=== PATIENT | male | born 1990 | race Caucasian/White ===

== ENCOUNTER 2016-12-04 19:07 | Emergency (ER) | payer OTHER ==
[2016-12-04 19:22] VITALS: BP 159/80; PULSE 108; RESP 18; TEMP 98.6
--- NOTE | 2016-12-04 20:16 | ED ---
General Adult HPI - General Chief complaint: Dental/Oral Stated complaint: abscess tooth Time Seen by Provider: 12/04/16 19:45 Source: patient, RN notes reviewed Mode of arrival: ambulatory Limitations: no limitations - History of Present Illness Initial comments: This is a 26yo male who presents with dental pain 2 days. Patient states he's had trouble with this same tooth multiple times. Patient states he is scheduled to have surgery on this tooth 2 years ago but never did. Patient states he has taken 2 doses of penicillin that he had left over from a time before. Patient states he is not in a lot of pain but is noticing swelling to the left side of his face. Patient states the pain is worse when he smiles or eats. Patient denies any fever/chills nausea/vomiting/diarrhea. Patient does have a dentist.Patient denies any recent shortness breath, chest pain, abdominal pain, back pain, numbness, tingling, hematuria, headache, or visual changes, or any other complaints. - Related Data Previous Rx's Medication Instructions Recorded Amoxicillin 500 mg PO Q12HR 7 Days 12/04/16 Allergies Allergy/AdvReac Type Severity Reaction Status Date / Time No Known Allergies Allergy Verified 12/04/16 19:22 Review of Systems ROS Statement: Those systems with pertinent positive or pertinent negative responses have been documented in the HPI. ROS Other: All systems not noted in ROS Statement are negative. Past Medical History Past Medical History: No Reported History Additional Past Medical History / Comment(s): MS History of Any Multi-Drug Resistant Organisms: None Reported Past Surgical History: No Surgical Hx Reported Past Psychological History: No Psychological Hx Reported Smoking Status: Current every day smoker Past Alcohol Use History: Occasional Past Drug Use History: Marijuana General Exam - General Exam Comments Initial Comments: General: The patient is awake and alert, in no distress, and does not appear acutely ill. Eye: Pupils are equal, round and reactive to light, extra-ocular movements are intact. No nystagmus. There is normal conjunctiva bilaterally. No signs of icterus. Ears: TMs pink and pearly with intact cone of light bilaterally. Normal external ear canals Mouth and throat: There is chronic decay to tooth #18 with no surrounding erythema, purulent drainage or sign of abscess. There is some mild external facial swelling to the left side lower jaw. There are moist mucous membranes and no oral lesions. Neck: The neck is supple, there is no tenderness or JVD. Cardiovascular: There is a regular rate and rhythm. No murmur, rub or gallop is appreciated. Respiratory: Lungs are clear to auscultation, respirations are non-labored, breath sounds are equal. No wheezes, stridor, rales, or rhonchi. Musculoskeletal: Normal ROM, no tenderness. Strength 5/5. Sensation intact. Radial Pulses equal bilaterally 2+. Neurological: A&O x 3. CN II-XII intact, There are no obvious motor or sensory deficits. Coordination appears grossly intact. Speech is normal. Skin: Skin is warm and dry and no rashes or lesions are noted. Psychiatric: Cooperative, appropriate mood & affect, normal judgment. Limitations: no limitations Course Vital Signs 12/04/16 19:19 Temperature 98.6 F Pulse Rate 108 H Respiratory 18 Rate Blood Pressure 159/80 O2 Sat by Pulse 97 Oximetry Medical Decision Making - Medical Decision Making This is a 26-year-old male presents with dental pain 2 days. On physical exam patient is afebrile in the EC. There is chronic decay to tooth #18 with no surrounding erythema, purulent drainage or sign of abscess. There is some mild external facial swelling to the left side lower jaw. I discussed the patient will be on a course of antibiotics. Patient was offered pain medication but states that [id number] Tylenol or Motrin will be fine for him as he is not in a lot of pain. I discussed the importance of following up with a dentist. Patient was given a dental referral today. Discussed return parameters. Discussed that patient should follow up with PCP in one to 2 days or return to the EC for any worsening symptoms or for any further concerns. Patient was receptive to this plan and patient will be discharged home. Disposition Clinical Impression: Pain, dental Disposition: HOME SELF-CARE Condition: Good Instructions: Toothache (ED), Dental Caries (ED) Additional Instructions: Please use antibiotics as prescribed. May use [id number] Tylenol or Motrin for pain. Use warm compresses to the area for pain. Please follow-up with dentist as soon as possible. Please follow up with PCP tomorrow or return to the EC for any worsening symptoms or for any further concerns.[facility] dental plan: [id number] [facility] [place] [address], . [employer]: Have to pay $50 for x-rays and the rest is covered. . Please follow-up with family doctor in the next 2 days of symptoms have not improved. Please return to emergency room if the symptoms increase or worsen or for any other concerns. Prescriptions: Amoxicillin 500 mg PO Q12HR 7 Days Time of Disposition: 20:15
== END 2016-12-04 20:20 | disposition home or self-care (01) ==
LOC: EC 19:07
DX: K08.89 Other specified disorders of teeth and supporting structures (principal); F17.200 Nicotine dependence, unspecified, uncomplicated
CPT/HCPCS: 99282

== ENCOUNTER 2017-05-12 00:23 | Emergency (ER) | payer OTHER ==
[2017-05-12 00:37] VITALS: BP 135/76; PULSE 90; RESP 18; TEMP 98.3
[2017-05-12] MEDS ORDERED: DIPH,PERTUS(ACELL)TETVAC-LF 0.5 ML VIAL IM ONE (00:50)
--- NOTE | 2017-05-12 00:53 | ED ---
Wound/Laceration HPI - General Chief Complaint: Wound/Laceration Stated Complaint: toe injury Time Seen by Provider: 05/12/17 00:41 Source: patient, RN notes reviewed Mode of arrival: ambulatory Limitations: no limitations - History of Present Illness Initial Comments: 26-year-old male presents emergency Department with chief complaint of laceration to his left foot third digit. Patient states that he stepped on a glass table to kill a spider and states that he fell to the glass. Patient states it's very thick glass and cut his third digit. Patient also has small laceration to the second. He is unsure when his last tetanus was. He states he did wrap it and there is no active bleeding at this time. - Related Data Home Medications Medication Instructions Recorded Confirmed Glatiramer Acetate [Copaxone] 20 mg SQ DIRECTED 05/12/17 05/12/17 Ibuprofen [Motrin] 600 mg PO Q8HR PRN 05/12/17 05/12/17 Previous Rx's Medication Instructions Recorded Amoxicillin 500 mg PO Q12HR 7 Days 12/04/16 Allergies Allergy/AdvReac Type Severity Reaction Status Date / Time No Known Allergies Allergy Verified 05/12/17 00:37 Review of Systems ROS Statement: Those systems with pertinent positive or pertinent negative responses have been documented in the HPI. ROS Other: All systems not noted in ROS Statement are negative. Past Medical History Past Medical History: No Reported History Additional Past Medical History / Comment(s): MS History of Any Multi-Drug Resistant Organisms: None Reported, MRSA Date of last positivie culture/infection: 2006 MDRO Source:: buttock Past Surgical History: No Surgical Hx Reported Past Psychological History: No Psychological Hx Reported Smoking Status: Current every day smoker Past Alcohol Use History: Occasional, Rare Past Drug Use History: Marijuana, Prescription Drug Abuse General Exam Limitations: no limitations General appearance: alert, in no apparent distress Neck exam: Present: normal inspection. Absent: tenderness, meningismus, lymphadenopathy Respiratory exam: Present: normal lung sounds bilaterally. Absent: respiratory distress, wheezes, rales, rhonchi, stridor Cardiovascular Exam: Present: regular rate, normal rhythm, normal heart sounds. Absent: systolic murmur, diastolic murmur, rubs, gallop, clicks Extremities exam: Present: other (Left foot third digit there is a 2 cm laceration along with an avulsion of the skin on the second digit Refill less than 2 seconds) Skin exam: Present: warm, dry Course Vital Signs 05/12/17 00:34 Temperature 98.3 F Pulse Rate 90 Respiratory 18 Rate Blood Pressure 135/76 O2 Sat by Pulse 97 Oximetry Procedures - Laceration Laceration #1 Consent Obtained: verbal consent Indication: laceration Site: lower extremity (Left foot third digit) Size (cm): 2 Description: linear Depth: simple, single layer Anesthetic Used: lidocaine 1%, without epi Anesthesia Technique: local infiltration Amount (mls): 3 Pre-repair: wound explored, irrigated extensively, deep structures intact Type of Sutures: nylon Size of Sutures: 5-0 Number of Sutures: 6 Technique: simple, interrupted Patient Tolerated Procedure: well, no complications Medical Decision Making - Medical Decision Making 26-year-old male present emergency from for foot laceration. This was closed using sutures. There is no foreign body. We did discuss wound care and return parameters. Disposition Clinical Impression: Laceration of toe of left foot Disposition: HOME SELF-CARE Condition: Stable Instructions: Care For Your Stitches (ED), Laceration (ED) Additional Instructions: Please return to the Emergency Department if symptoms worsen or any other concerns. Have sutures removed in 10 days. Referrals: Luis Fernando Cheatham MD [Primary Care Provider] - 1-2 days Time of Disposition: 01:28
--- NOTE | 2017-05-12 01:38 | XR ---
EXAM: XR Left Toe(s), 2 or More Views CLINICAL HISTORY: Reason: Pain TECHNIQUE: Frontal, lateral and oblique views of toe(s) of the left foot. COMPARISON: No relevant prior studies available. FINDINGS: Bones/joints: Unremarkable. No acute fracture. No dislocation. Soft tissues: No significant soft tissue swelling.. No radiopaque foreign body. IMPRESSION: Normal x-rays of the left toes.
== END 2017-05-12 01:37 | disposition home or self-care (01) ==
LOC: EC 00:23
DX: S91.115A Laceration without foreign body of left lesser toe(s) without damage to nail, initial encounter (principal); G35 Multiple sclerosis; F17.200 Nicotine dependence, unspecified, uncomplicated; Z23 Encounter for immunization; Z86.14 Personal history of Methicillin resistant Staphylococcus aureus infection; Z79.899 Other long term (current) drug therapy; W18.39XA Other fall on same level, initial encounter; W25.XXXA Contact with sharp glass, initial encounter; Y93.89 Activity, other specified; Y92.009 Unspecified place in unspecified non-institutional (private) residence as the place of occurrence of the external cause
CPT/HCPCS: 12001; 90471; 90715; 99283

== ENCOUNTER 2017-05-25 17:17 | Emergency (ER) | payer OTHER ==
[2017-05-25 17:23] VITALS: BP 138/97; PULSE 104; RESP 18; TEMP 100
--- NOTE | 2017-05-25 17:53 | ED ---
General Adult HPI - General Chief complaint: Upper Respiratory Infection Stated complaint: Cough/congestion Time Seen by Provider: 05/25/17 17:20 Source: patient, RN notes reviewed Mode of arrival: ambulatory Limitations: no limitations - History of Present Illness Initial comments: This is a 26-year-old male comes in complaining of a cough for one week in the chills for one week. Patient states she's also coughing up green sputum. Patient states she's had no difficulty breathing or shortness of breath. Patient states he is smoking however. Patient also has had some nasal congestion but no facial tenderness whatsoever. Patient states she has some pressure in the right ear but not the left. Patient denies any ear drainage. Patient states he has a sore throat the morning but by the end of the day it feels much better when he wakes up the next morning his throat is sore again. - Related Data Home Medications Medication Instructions Recorded Confirmed Glatiramer Acetate [Copaxone] 20 mg SQ DIRECTED 05/12/17 05/12/17 Ibuprofen [Motrin] 600 mg PO Q8HR PRN 05/12/17 05/12/17 Previous Rx's Medication Instructions Recorded Amoxicillin 500 mg PO Q12HR 7 Days 12/04/16 Azithromycin [Zithromax Tri-Walyl] 500 mg PO DAILY #3 tab 05/25/17 Allergies Allergy/AdvReac Type Severity Reaction Status Date / Time No Known Allergies Allergy Verified 05/25/17 17:23 Review of Systems ROS Statement: Those systems with pertinent positive or pertinent negative responses have been documented in the HPI. ROS Other: All systems not noted in ROS Statement are negative. Past Medical History Past Medical History: No Reported History Additional Past Medical History / Comment(s): MS History of Any Multi-Drug Resistant Organisms: None Reported, MRSA Date of last positivie culture/infection: 2006 MDRO Source:: buttock Past Surgical History: No Surgical Hx Reported Past Psychological History: No Psychological Hx Reported Smoking Status: Current every day smoker Past Alcohol Use History: Rare Past Drug Use History: Marijuana, Prescription Drug Abuse General Exam - General Exam Comments Initial Comments: GENERAL: Patient is well-developed and well-nourished. Patient is nontoxic and well- hydrated and is in mild distress. ENT: Neck is soft and supple. No significant lymphadenopathy is noted. Oropharynx is clear. Moist mucous membranes. Neck has full range of motion without eliciting any pain. EYES: The sclera were anicteric and conjunctiva were pink and moist. Extraocular movements were intact and pupils were equal round and reactive to light. Eyelids were unremarkable. PULMONARY: Unlabored respirations. Good breath sounds bilaterally. No audible rales rhonchi or wheezing was noted. CARDIOVASCULAR: There is a regular rate and rhythm without any murmurs gallops or rubs. ABDOMEN: Soft and nontender with normal bowel sounds. SKIN: Skin is clear with no lesions or rashes and otherwise unremarkable. NEUROLOGIC: Patient is alert and oriented x3. Cranial nerves II through XII are grossly intact. Motor and sensory are also intact. Normal speech, volume and content. MUSCULOSKELETAL: Normal extremities with adequate strength and full range of motion. LYMPHATICS: No significant lymphadenopathy is noted PSYCHIATRIC: Normal psychiatric evaluation. Limitations: no limitations Course Vital Signs 05/25/17 17:20 Temperature 100 F H Pulse Rate 104 H Respiratory 18 Rate Blood Pressure 138/97 O2 Sat by Pulse 94 L Oximetry Disposition Clinical Impression: Acute bronchitis Disposition: HOME SELF-CARE Condition: Good Instructions: Acute Bronchitis (ED) Prescriptions: Azithromycin [Zithromax Tri-Wally] 500 mg PO DAILY #3 tab Referrals: Luis Fernando Cheatham MD [Primary Care Provider] - 1-2 days Time of Disposition: 17:52
== END 2017-05-25 18:17 | disposition home or self-care (01) ==
LOC: EC 17:17
DX: J20.9 Acute bronchitis, unspecified (principal); G35 Multiple sclerosis; F17.200 Nicotine dependence, unspecified, uncomplicated; Z79.899 Other long term (current) drug therapy
CPT/HCPCS: 99283

== ENCOUNTER → 2017-06-19 | Outpatient (CLI) | payer OTHER ==
[~2017-06-19] MED LIST: SODIUM CHLORIDE 0.9% 500 ML in EMPTY BAG 1 BAG IV PRN
[2017-06-19 14:43] VITALS: BP 126/70; PULSE 95
== END | disposition home or self-care (01) ==
LOC: PROCWHC3 14:28
PROVIDERS: ATTEND Psychiatry & Neurology Neurology
DX: G35 Multiple sclerosis (principal)
CPT/HCPCS: 96365; J2930

== ENCOUNTER 2017-10-18 18:05 | Emergency (ER) | payer OTHER ==
[2017-10-18 18:16] VITALS: RESP 20
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
[2017-10-18] MEDS ORDERED: HYDROcodone/APAP 5-325MG 1 EACH TAB PO STA (19:06)
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
[2017-10-18 19:29] VITALS: BP 123/80; PULSE 97; TEMP 98.8
== END 2017-10-18 19:29 | disposition home or self-care (01) ==
LOC: EC 18:05
DX: M94.0 Chondrocostal junction syndrome [Tietze] (principal); Z87.39 Personal history of other diseases of the musculoskeletal system and connective tissue; Z86.14 Personal history of Methicillin resistant Staphylococcus aureus infection; F17.200 Nicotine dependence, unspecified, uncomplicated; Z79.899 Other long term (current) drug therapy
CPT/HCPCS: 99283

== ENCOUNTER 2018-03-13 18:30 | Emergency (ER) | payer OTHER, MEDICARE ==
[2018-03-13 18:34] VITALS: BP 147/84; PULSE 102; RESP 18; TEMP 98.3
--- NOTE | 2018-03-13 19:12 | ED ---
ENT HPI - General Chief complaint: Dental/Oral Stated complaint: Abcess tooth Time Seen by Provider: 03/13/18 18:36 Source: patient, RN notes reviewed Mode of arrival: ambulatory Limitations: no limitations - History of Present Illness Initial comments: This is a pleasant 27-year-old male presents emergency department complaining of dental pain for the past few days. Patient denies any fever. Patient denies any chills. Patient denies any shortness breath or chest pain. Patient denies dizziness or lightheadedness. No difficulty swallowing. No skin rashes or lesions. No nausea or vomiting. No problems with bowel movements or urination. MD complaint: tooth pain Onset/Timin -: days(s) Severity: severe Severity scale (1-10): 7 Quality: aching Improves with: none Worsens with: none Associated Symptoms: toothache - Related Data Home Medications Medication Instructions Recorded Confirmed Glatiramer Acetate [Copaxone] 20 mg SQ SUTUTH 05/12/17 10/18/17 Previous Rx's Medication Instructions Recorded Hydrocodone/Acetaminophen [Olga 1 each PO Q6HR PRN #10 tab 10/18/17 5-325] Clindamycin [Cleocin] 300 mg PO Q6H #80 capsule 03/13/18 Naproxen [Naprosyn] 500 mg PO Q12HR #24 tab 03/13/18 Allergies Allergy/AdvReac Type Severity Reaction Status Date / Time No Known Allergies Allergy Verified 03/13/18 18:34 Review of Systems ROS Statement: Those systems with pertinent positive or pertinent negative responses have been documented in the HPI. ROS Other: All systems not noted in ROS Statement are negative. Past Medical History Past Medical History: No Reported History Additional Past Medical History / Comment(s): MS History of Any Multi-Drug Resistant Organisms: None Reported, MRSA Date of last positivie culture/infection: 2006 MDRO Source:: buttock Past Surgical History: No Surgical Hx Reported Past Psychological History: No Psychological Hx Reported Smoking Status: Current every day smoker Past Alcohol Use History: Rare Past Drug Use History: Marijuana General Exam Limitations: no limitations General appearance: alert, in no apparent distress Head exam: Present: atraumatic, normocephalic, normal inspection Eye exam: Present: normal appearance, PERRL, EOMI. Absent: scleral icterus, conjunctival injection, periorbital swelling ENT exam: Present: TM's normal bilaterally, other (No evidence of tonsillar adenopathy or exudate no evidence or lesions. Patient does have poor dentition throughout. Patient does have evidence of possible early dental abscess to adjacent to the right lower molars. Patient has minimal erythema adjacent to the lower molars bilaterally.) Neck exam: Present: normal inspection. Absent: tenderness, meningismus, lymphadenopathy Respiratory exam: Present: normal lung sounds bilaterally. Absent: respiratory distress, wheezes, rales, rhonchi, stridor Cardiovascular Exam: Present: regular rate, normal rhythm, normal heart sounds. Absent: systolic murmur, diastolic murmur, rubs, gallop, clicks Extremities exam: Present: normal inspection, normal capillary refill Neurological exam: Present: alert, oriented X3, CN II-XII intact Psychiatric exam: Present: normal affect, normal mood Skin exam: Present: warm, dry, intact, normal color. Absent: rash Course Vital Signs 03/13/18 18:32 Temperature 98.3 F Pulse Rate 102 H Respiratory 18 Rate Blood Pressure 147/84 O2 Sat by Pulse 99 Oximetry - Reevaluation(s) Reevaluation #1: 04/26/18 23:12 Patient remained stable throughout the course of stay in the ER Medical Decision Making - Medical Decision Making Return to the ER at once if the symptoms worsen or problems or difficulties arise. Discussed follow-up and return parameters with the patient Disposition Clinical Impression: Dental abscess Disposition: HOME SELF-CARE Condition: Good Instructions: Dental Abscess (ED) Additional Instructions: Follow-up with the [facility] at [address] [place] [address]. The phone number is [phone] (existing clients), ( new clients). The first consultation is $50 which includes x-rays. Usually costs 30% less than private dentist for subsequent visits. Return to the ER at once if the symptoms worsen or problems or difficulties arise. Warm Compresses as directed Prescriptions: Clindamycin [Cleocin] 300 mg PO Q6H #80 capsule Naproxen [Naprosyn] 500 mg PO Q12HR #24 tab Is patient prescribed a controlled substance at d/c from ED?: No Referrals: Luis Antonio Robles DDS [STAFF PHYSICIAN] - 03/16/18 Time of Disposition: 18:47
== END 2018-03-13 18:54 | disposition home or self-care (01) ==
LOC: EC 18:30
DX: K04.7 Periapical abscess without sinus (principal); G35 Multiple sclerosis; F17.200 Nicotine dependence, unspecified, uncomplicated; Z86.14 Personal history of Methicillin resistant Staphylococcus aureus infection; Z79.899 Other long term (current) drug therapy
CPT/HCPCS: 99282

== ENCOUNTER 2021-08-07 12:53 | Emergency (ER) | payer OTHER ==
[2021-08-07 13:29] VITALS: RESP 16; TEMP 98.6
--- NOTE | 2021-08-07 15:50 | ED ---
General Adult HPI - General Chief complaint: Recheck/Abnormal Lab/Rx Stated complaint: Weakness Time Seen by Provider: 08/07/21 14:55 Source: patient, RN notes reviewed Mode of arrival: wheelchair Limitations: no limitations - History of Present Illness Initial comments: this a 31-year-old male presents emergency Department chief complaint of MS issues. Patient states he sees his primary care physician for his MS. Patient occasionally needs infusions. He states he started noticing some tingling, jaundice weakness of his lower extremity or chest pain or shortness breath no other complaints. Patient states - Related Data Home Medications Medication Instructions Recorded Confirmed Ergocalciferol [Vitamin D2 (1250 1 tab PO WEEKLY 05/06/21 05/06/21 Mcg = [id number] Iu)] Allergies Allergy/AdvReac Type Severity Reaction Status Date / Time No Known Allergies Allergy Verified 08/07/21 13:29 Review of Systems ROS Statement: Those systems with pertinent positive or pertinent negative responses have been documented in the HPI. ROS Other: All systems not noted in ROS Statement are negative. Past Medical History Past Medical History: No Reported History Additional Past Medical History / Comment(s): MS History of Any Multi-Drug Resistant Organisms: None Reported, MRSA Date of last positivie culture/infection: 2006 MDRO Source:: buttock Past Surgical History: No Surgical Hx Reported Past Psychological History: No Psychological Hx Reported Smoking Status: Current every day smoker Past Alcohol Use History: Rare Past Drug Use History: Marijuana General Exam Limitations: no limitations General appearance: alert, in no apparent distress Head exam: Present: atraumatic, normocephalic, normal inspection Eye exam: Present: normal appearance, PERRL, EOMI. Absent: scleral icterus, conjunctival injection, periorbital swelling Respiratory exam: Present: normal lung sounds bilaterally. Absent: respiratory distress, wheezes, rales, rhonchi, stridor Cardiovascular Exam: Present: regular rate, normal rhythm, normal heart sounds. Absent: systolic murmur, diastolic murmur, rubs, gallop, clicks GI/Abdominal exam: Present: soft, normal bowel sounds. Absent: distended, tenderness, guarding, rebound, rigid Extremities exam: Present: other (lower extremity strength 4/5 neurovascular intact) Back exam: Present: full ROM. Absent: tenderness, paraspinal tenderness, vertebral tenderness Course Vital Signs 08/07/21 13:26 Temperature 98.6 F Pulse Rate 73 Respiratory 16 Rate Blood Pressure 117/77 O2 Sat by Pulse 96 Oximetry Medical Decision Making - Medical Decision Making 31-year-old male presented for MS exacerbation. I recommended the patient that he needs to stay for IV steroid infusion for several days. Patient refuses to be admitted as he states he had issues in the past. He understands the risk and compilations of present see been one-time dose infusion. He still states that he would prefer to have sthis infusion and go home. Disposition Clinical Impression: Exacerbation of multiple sclerosis Disposition: HOME SELF-CARE Condition: Stable Instructions (If sedation given, give patient instructions): Multiple Sclerosis (DC) Additional Instructions: please follow up with your PCP tomorrow and discuss further infusions.Please return to the Emergency Department if symptoms worsen or any other concerns. Is patient prescribed a controlled substance at d/c from ED?: No Referrals: Benjamín Mortensen MD [Primary Care Provider] - 1-2 days Time of Disposition: 15:50
[2021-08-07 16:27] VITALS: BP 112/70; PULSE 72
== END 2021-08-07 16:27 | disposition home or self-care (01) ==
LOC: EC 12:53
DX: G35 Multiple sclerosis (principal); F17.200 Nicotine dependence, unspecified, uncomplicated
CPT/HCPCS: 99284; 96365; J2930

== ENCOUNTER 2021-12-24 13:38 | Emergency (ER) | payer MEDICARE, OTHER ==
[2021-12-24 14:01] VITALS: BP 122/80; PULSE 83; RESP 16; TEMP 98
[2021-12-24] MEDS ORDERED: methylPREDNISolone SOD SUCCI 40 MG/ML 1 ML VIAL IV STA (15:18)
[2021-12-24] MEDS ORDERED: methylPREDNISolone SOD SUCCIN 1,000 MG in SODIUM CHLORIDE 0.9% 250 ML IVPB STA (15:41)
[2021-12-24 15:58] LABS: Basophils # (A) 0.1 k/uL (0-0.2); Basophils % (A) 1 %; Eosinophils # (A) 0.3 k/uL (0-0.7); Eosinophils % (A) 3 %; HCT 44.4 % (39.0-53.0); HGB 15.2 gm/dL (13.0-17.5); Lymphocytes # (A) 2.5 k/uL (1.0-4.8); Lymphocytes % (A) 24 %; MCH 29.8 pg (25.0-35.0); MCHC 34.2 g/dL (31.0-37.0); MCV 87.3 fL (80.0-100.0); Mean Platelet Volume 7.3; Monocytes # (A) 0.6 k/uL (0-1.0); Monocytes % (A) 6 %; Neutrophils # (A) 6.9 k/uL (1.3-7.7); Neutrophils % (A) 66 %; Platelet Count 253 k/uL (150-450); RBC 5.08 m/uL (4.30-5.90); RDW 13.3 % (11.5-15.5); WBC 10.5 k/uL (3.8-10.6)
--- NOTE | 2021-12-24 15:58 | ED ---
Eye Problem HPI - General Chief complaint: Eye Problems Stated complaint: eye problem Time Seen by Provider: 12/24/21 14:56 Source: patient Mode of arrival: ambulatory Limitations: no limitations - History of Present Illness Initial comments: Patient is a 31-year-old male past medical history of multiple sclerosis who presents with right eye blurry vision and pain 5 days. Patient was evaluated by manager steel and belt repairer today who suspect right eye optic neuritis secondary to multiple sclerosis. Patient reports that his vision out of the rig ht eye is very dark and blurry. He has never experienced these symptoms before. Symptoms presented suddenly and are constant. He denies flashes or floaters. Patient reports he normally has 20/20 vision in the right eye with glasses on. Patient also reports pain in the right eye that is exacerbated with extraocular movements left, right, and upward. Patient denies visual changes and pain in th e left eye. Patient was sent to the emergency department by Dr. Bonilla and Dr. Olvera for IV steroid treatment 3 days. Patient denies fever, chills, generalized weakness, diplopia, headache, shortness of breath, cough, chest pain, palpitations, abdominal pain, nausea, vomiting, diarrhea, constipation, and dysuria. - Related Data Previous Rx's Medication Instructions Recorded predniSONE 20 mg PO TID 7 Days #21 tab 12/24/21 Allergies Allergy/AdvReac Type Severity Reaction Status Date / Time No Known Allergies Allergy Verified 12/24/21 15:37 Review of Systems ROS Statement: Those systems with pertinent positive or pertinent negative responses have been documented in the HPI. ROS Other: All systems not noted in ROS Statement are negative. Past Medical History Past Medical History: Musculoskeletal Disorder Additional Past Medical History / Comment(s): Multiple sclerosis History of Any Multi-Drug Resistant Organisms: None Reported, MRSA Date of last positivie culture/infection: 2006 MDRO Source:: buttock Past Surgical History: No Surgical Hx Reported Past Psychological History: No Psychological Hx Reported Smoking Status: Current every day smoker Past Alcohol Use History: None Reported Past Drug Use History: Marijuana General Exam Limitations: no limitations General appearance: alert, in no apparent distress Head exam: Present: atraumatic, normocephalic, normal inspection Eye exam: Present: normal appearance, PERRL, EOMI (pain ) Respiratory exam: Present: normal lung sounds bilaterally. Absent: respiratory distress, wheezes, rales, rhonchi, stridor Cardiovascular Exam: Present: regular rate, normal rhythm, normal heart sounds. Absent: systolic murmur, diastolic murmur, rubs, gallop, clicks GI/Abdominal exam: Present: soft, normal bowel sounds. Absent: distended, tenderness, guarding, rebound, rigid Neurological exam: Present: alert, oriented X3, CN II-XII intact Psychiatric exam: Present: normal affect, normal mood Skin exam: Present: warm, dry, intact, normal color. Absent: rash Course Vital Signs 12/24/21 13:54 Temperature 98 F Pulse Rate 83 Respiratory 16 Rate Blood Pressure 122/80 O2 Sat by Pulse 97 Oximetry Medical Decision Making - Medical Decision Making This is a 31-year-old male who presents with right eye blurry vision and pain 5 days likely due to optic neuritis secondary to multiple sclerosis. Patient was sent to the emergency department by his manager steel and belt repairer for IV methylprednisone daily 3 days. Thorough history and examination were performed. Visual acuity of left eye is 20/25. Patient is unable to see chart at all with right eye and states he can only see the floor. Case discussed with patient. Patient is agreeable to IV access, laboratory blood draw, and first dose of IV methylprednisolone. Patient declines admission at this time as he reports he has to take care of his kids at home. Patient states he has previously received infusion treatment outpatient arranged by his primary care provider Dr. Mortensen. Case discussed with Dr. Mortensen. Dr. Mortensen is unable arrange for timely infusion and does recommend patient be admitted for IV steroid treatment. He does mention that patient was referred to neurologist in April of 2021 and has been noncompliant. Risks and benefits d iscussed with patient, including but not limited to permanent blindness. Patient verbalizes understanding and reports he will come to the emergency department at 7 AM for the next 2 consecutive days for further IV methylprednisolone treatment. Strict return parameters discussed. I did prescribe the patient oral prednisone with instructions to take it if he does not come to the emergency department tomorrow for IV steroid treatment. Patient verbalizes understanding. Dr. Whitley is my attending. - Lab Data Result diagrams: 12/24/21 15:50 12/24/21 15:50 Lab Results 12/24/21 12/24/21 Range/Units 15:50 15:50 WBC 10.5 (3.8-10.6) k/uL RBC 5.08 (4.30-5.90) m/uL Hgb 15.2 (13.0-17.5) gm/dL Hct 44.4 (39.0-53.0) % MCV 87.3 (80.0-100.0) fL MCH 29.8 (25.0-35.0) pg MCHC 34.2 (31.0-37.0) g/dL RDW 13.3 (11.5-15.5) % Plt Count 253 (150-450) k/uL MPV 7.3 Neutrophils % 66 % Lymphocytes % 24 % Monocytes % 6 % Eosinophils % 3 % Basophils % 1 % Neutrophils # 6.9 (1.3-7.7) k/uL Lymphocytes # 2.5 (1.0-4.8) k/uL Monocytes # 0.6 (0-1.0) k/uL Eosinophils # 0.3 (0-0.7) k/uL Basophils # 0.1 (0-0.2) k/uL Sodium 140 (137-145) mmol/L Potassium 4.0 (3.5-5.1) mmol/L Chloride 109 H (98-107) mmol/L Carbon Dioxide 20 L (22-30) mmol/L Anion Gap 11 mmol/L BUN 9 (9-20) mg/dL Creatinine 0.72 (0.66-1.25) mg/dL Est GFR (CKD-EPI)AfAm >90 (>60 ml/min/1.73 sqM) Est GFR (CKD-EPI)NonAf >90 (>60 ml/min/1.73 sqM) Glucose 97 (74-99) mg/dL Calcium 9.7 (8.4-10.2) mg/dL Total Bilirubin 0.4 (0.2-1.3) mg/dL AST 22 (17-59) U/L ALT 20 (4-49) U/L Alkaline Phosphatase 89 (38-126) U/L Total Protein 7.8 (6.3-8.2) g/dL Albumin 4.8 (3.5-5.0) g/dL Disposition Clinical Impression: Acute right eye pain, Multiple sclerosis, Bacterial conjunctivitis Disposition: HOME SELF-CARE Condition: Fair Instructions (If sedation given, give patient instructions): Optic Neuritis (ED) Additional Instructions: Untreated optic neuritis does increase the risk of permanent blindness. It is extremely important to report to the emergency department for the next 2 consecutive days for IV steroid treatment. Take oral prednisone medication as prescribed only if you do not come to the emergency department on 12/25/21 and 12/26/21 for IV steroid treatment. Return to the emergency department if you e xperience new, concerning, or worsening symptoms. Prescriptions: predniSONE 20 mg PO TID 7 Days #21 tab Is patient prescribed a controlled substance at d/c from ED?: No Referrals: Benjamín Mortensen MD [Primary Care Provider] - 1-2 days Time of Disposition: 17:23
[2021-12-24 16:10] LABS: ALT 20 U/L (4-49); AST 22 U/L (17-59); African American GFR (CKD) >90 (>60 ml/min/1.73 sqM); Albumin 4.8 g/dL (3.5-5.0); Alkaline Phosphatase 89 U/L (38-126); Anion Gap 11 mmol/L; Blood Urea Nitrogen 9 mg/dL (9-20); Calcium 9.7 mg/dL (8.4-10.2); Carbon Dioxide 20 mmol/L (22-30); Chloride 109 mmol/L (98-107); Glucose 97 mg/dL (74-99); Non-African American GFR(CKD) >90 (>60 ml/min/1.73 sqM); Sodium 140 mmol/L (137-145); Total Bilirubin 0.4 mg/dL (0.2-1.3); Total Protein 7.8 g/dL (6.3-8.2)
== END 2021-12-24 18:10 | disposition home or self-care (01) ==
LOC: EC 13:38
DX: G35 Multiple sclerosis (principal); H57.11 Ocular pain, right eye; H10.9 Unspecified conjunctivitis; F17.200 Nicotine dependence, unspecified, uncomplicated
CPT/HCPCS: 99283; 96365; 36415; 80053; 85025; J2930

== ENCOUNTER 2021-12-25 09:32 | Emergency (ER) | payer MEDICARE, OTHER ==
[2021-12-25 09:46] VITALS: TEMP 96.9
--- NOTE | 2021-12-25 10:16 | ED ---
General Adult HPI - General Chief complaint: Eye Problems Stated complaint: eye problem-revisit Time Seen by Provider: 12/25/21 09:47 Source: patient, RN notes reviewed, old records reviewed Mode of arrival: ambulatory Limitations: no limitations - History of Present Illness Initial comments: Patient is a 31-year-old male with past medical history remarkable for MS. Was diagnosed with optic neuritis secondary to multiple sclerosis by opthalmology. He was instructed to come to the emergency department. He was instructed to receive IV steroid infusions. He did not want to be admitted to the hospital. He was evaluated yesterday for the same complaint was given his infusions and then discharged home with instructions to return if daily basis over the next 2 days for further IV steroid treatment. He was in agreement this plan. He states today that he is improving in terms of his symptoms. States he believes his vision is improved at this time. Endorses no acute changes or worsening symptoms yesterday. His no other acute point at this time. Would like his steroid infusions. - Related Data Previous Rx's Medication Instructions Recorded predniSONE 20 mg PO TID 7 Days #21 tab 12/24/21 Allergies Allergy/AdvReac Type Severity Reaction Status Date / Time No Known Allergies Allergy Verified 12/25/21 09:46 Review of Systems ROS Statement: Those systems with pertinent positive or pertinent negative responses have been documented in the HPI. Review of Systems: CONST: Denies fever EYES: Endorses improving blurry vision right eye ENT: Denies nasal congestion C/V: Denies Chest pain RESP: Denies shortness of breath GI: Denies abdominal pain : Denies dysuria SKIN: Denies rash. MSK: Denies joint pain. NEURO: Denies headache ROS Other: All systems not noted in ROS Statement are negative. Past Medical History Past Medical History: Musculoskeletal Disorder Additional Past Medical History / Comment(s): Multiple sclerosis History of Any Multi-Drug Resistant Organisms: None Reported, MRSA Date of last positivie culture/infection: 2006 MDRO Source:: buttock Past Surgical History: No Surgical Hx Reported Past Psychological History: No Psychological Hx Reported Smoking Status: Current every day smoker Past Alcohol Use History: None Reported Past Drug Use History: Marijuana General Exam - General Exam Comments Initial Comments: General: Appears in no acute distress. HEAD: Normal with no signs of head trauma. EYES: PERRLA, EOMI, conjunctiva normal, no discharge. ENT: Hearing grossly intact, normal oropharynx. RESPIRATORY: Clear breath sounds bilaterally. No wheezes, rales, or rhonchi. C/V: Regular rate and rhythm. S1 and S2 auscultated, no edema, peripheral pulses 2+ and intact throughout ABD: Abd is soft, nontender, nondistended EXT: Normal range of motion, no obvious deformity SKIN: No rashes or lesions observed on exposed skin. NEURO: Alert and oriented 4. Limitations: no limitations Course Vital Signs 12/25/21 12/25/21 09:43 11:46 Temperature 96.9 F L Pulse Rate 107 H 98 Respiratory 18 16 Rate Blood Pressure 133/78 137/76 O2 Sat by Pulse 97 97 Oximetry Medical Decision Making - Medical Decision Making Based on the patient's presentation and physical exam, I believe that he can receive his steroid infusions and be discharged home. Patient was was in agreement with this plan. I do not believe that he requires any further laboratory studies or imaging. I did instruct him to return to the emergency department tomorrow for his final dose steroids. He has adequate follow-up with neurology as well as ophthalmology. His symptoms seem to be improving. I instructed the patient to follow up with their PCP in the next 3 days. I explained that the patient should return to the emergency department if they experience any worsening symptoms. Strict return precautions were discussed with the patient. The patient expressed understanding of these instructions. I answered all questions that the patient had. The patient was discharged home in good condition with their prescriptions and follow up information. Disposition Clinical Impression: Multiple sclerosis exacerbation Disposition: HOME SELF-CARE Condition: Good Instructions (If sedation given, give patient instructions): Multiple Sclerosis (DC) Is patient prescribed a controlled substance at d/c from ED?: No Referrals: Benjamín Mortensen MD [Primary Care Provider] - 1-2 days
[2021-12-25] MEDS ORDERED: methylPREDNISolone SOD SUCC 1,000 MG in SODIUM CHLORIDE 0.9% 250 ML IVPB ONE (10:30)
[2021-12-25 11:46] VITALS: BP 137/76; PULSE 98; RESP 16
== END 2021-12-25 12:06 | disposition home or self-care (01) ==
LOC: EC 09:32
DX: G35 Multiple sclerosis (principal); F17.200 Nicotine dependence, unspecified, uncomplicated
CPT/HCPCS: 99283; 96365; J2930

== ENCOUNTER 2021-12-26 07:41 | Emergency (ER) | payer MEDICARE, OTHER ==
[2021-12-26 07:57] VITALS: RESP 18
[2021-12-26] MEDS ORDERED: methylPREDNISolone SOD SUCC 1,000 MG in SODIUM CHLORIDE 0.9% 250 ML IVPB ONE (08:30)
--- NOTE | 2021-12-26 08:38 | ED ---
Recheck HPI - General Chief Complaint: Recheck/Abnormal Lab/Rx Stated Complaint: Steroid infusion, revisit Time Seen by Provider: 12/26/21 08:00 Source: patient, RN notes reviewed Mode of arrival: ambulatory Limitations: no limitations - History of Present Illness Initial Comments: This is a 31 year old male with a PMHx of MS who presents to the emergency department for his third infusion of methylprednisolone for optic neuritis. Optic neuritis was diagnosed by ophthalmology secondary to multiple sclerosis. Patient was advised to be admitted for IV steroids, however he refused and has instead been coming to the emergency department daily for the last 3 days to receive IV infusions. Denies any acute changes or worsening symptoms, he notes that his pain is still present, but improving. The blurry vision is improving as well, he is able to see out of the bottom half of the right eye. His vac press operator is on vacation so his follow up appointment is not scheduled until 01/03/2022. MD Complaint: other (IV steroids day 3) Symptoms Since Prior Visit: no new symptoms - Related Data Home Medications Medication Instructions Recorded Confirmed predniSONE See Taper PO DIRECTED 12/26/21 Allergies Allergy/AdvReac Type Severity Reaction Status Date / Time No Known Allergies Allergy Verified 12/26/21 08:52 Review of Systems ROS Statement: Those systems with pertinent positive or pertinent negative responses have been documented in the HPI. ROS Other: All systems not noted in ROS Statement are negative. Constitutional: Denies: fever, chills Eyes: Reports: eye pain, other (blurry vision - improving). Denies: eye discharge ENT: Denies: ear pain, throat pain Respiratory: Denies: cough, dyspnea Cardiovascular: Denies: chest pain, palpitations Gastrointestinal: Denies: abdominal pain, nausea, vomiting Genitourinary: Denies: urgency, dysuria Past Medical History Past Medical History: Musculoskeletal Disorder Additional Past Medical History / Comment(s): Multiple sclerosis History of Any Multi-Drug Resistant Organisms: None Reported, MRSA Date of last positivie culture/infection: 2006 MDRO Source:: buttock Past Surgical History: No Surgical Hx Reported Past Psychological History: No Psychological Hx Reported Smoking Status: Current every day smoker Past Alcohol Use History: None Reported Past Drug Use History: Marijuana General Exam Limitations: no limitations General appearance: alert, in distress Head exam: Present: atraumatic, normocephalic, normal inspection Eye exam: Present: PERRL, EOMI, other. Absent: normal appearance, scleral icterus, conjunctival injection Respiratory exam: Present: normal lung sounds bilaterally. Absent: respiratory distress, wheezes, rales, rhonchi, stridor Cardiovascular Exam: Present: regular rate, normal rhythm, normal heart sounds. Absent: systolic murmur, diastolic murmur, rubs, gallop, clicks Neurological exam: Present: alert, oriented X3, CN II-XII intact Psychiatric exam: Present: normal affect, normal mood Course Vital Signs 12/26/21 07:54 Temperature 97.8 F Pulse Rate 127 H Respiratory 18 Rate Blood Pressure 153/76 O2 Sat by Pulse 97 Oximetry Medical Decision Making - Medical Decision Making This is a 31 year old male who presents to the emergency department for his third methylprednisolone infusion for optic neuritis secondary to multiple sclerosis. 1g Methylprednisolone administered. Patient tolerated infusion well without complications and is safe for discharge home. Return precautions reviewed in depth, the patient is instructed to return to the emergency department if he develops symptoms including but not limited to worsening eye pain, progressive blurry vision, fevers, and nausea/vomiting. Patient verbalized understanding and will follow up with ophthalmology as schedu led. This case was discussed in detail with the attending ED physician. Presentation, findings, and treatment plan discussed in detail as well. Disposition Clinical Impression: Optic neuritis due to multiple sclerosis Disposition: HOME SELF-CARE Condition: Stable Instructions (If sedation given, give patient instructions): Optic Neuritis (ED) Additional Instructions: Return to the emergency department if you develop worsening eye pain, worsening blurry vision, fevers/chills, or nausea/vomiting. Follow up with your vac press operator as scheduled. Is patient prescribed a controlled substance at d/c from ED?: No Referrals: Benjamín Mortensen MD [Primary Care Provider] - 1-2 days
[2021-12-26 11:41] VITALS: BP 141/79; PULSE 99; TEMP 98
== END 2021-12-26 11:40 | disposition home or self-care (01) ==
LOC: EC 07:41
DX: G35 Multiple sclerosis (principal); H46.9 Unspecified optic neuritis; F17.200 Nicotine dependence, unspecified, uncomplicated
CPT/HCPCS: 99283; 96365; J2930

== ENCOUNTER 2022-06-30 08:24 | Emergency (ER) | payer MEDICARE, OTHER ==
[2022-06-30 08:32] VITALS: RESP 18
[2022-06-30] MEDS ORDERED: methylPREDNISolone SOD SUCCIN 250 MG in SODIUM CHLORIDE 0.9% 100 ML IVPB STA (08:34)
--- NOTE | 2022-06-30 08:40 | ED ---
General Adult HPI - General Chief complaint: Recheck/Abnormal Lab/Rx Stated complaint: Doctor sent to get steroid infusion Time Seen by Provider: 06/30/22 08:26 Source: patient, RN notes reviewed Mode of arrival: wheelchair Limitations: no limitations - History of Present Illness Initial comments: 32-year-old male presents emergency Department for steroid infusion for MS. Patient states he is currently sees Dr. Espinoza and sees Dr. Lawrence. Patient normally has outpatient infusions when he starts to have MS exacerbation but states that they're unable to get him in today. Patient states that he's been referred to a specialist. Patient states he has mild left leg and arm weakness. Patient denies any headache blurred vision no chest pain states it's very typical symptoms for him he states his initial MS started with his left arm. - Related Data Home Medications Medication Instructions Recorded Confirmed predniSONE See Taper PO DIRECTED 12/26/21 Allergies Allergy/AdvReac Type Severity Reaction Status Date / Time No Known Allergies Allergy Verified 12/26/21 08:52 Review of Systems ROS Statement: Those systems with pertinent positive or pertinent negative responses have been documented in the HPI. ROS Other: All systems not noted in ROS Statement are negative. Past Medical History Past Medical History: Musculoskeletal Disorder Additional Past Medical History / Comment(s): Multiple sclerosis History of Any Multi-Drug Resistant Organisms: None Reported, MRSA Date of last positivie culture/infection: 2006 MDRO Source:: buttock Past Surgical History: No Surgical Hx Reported Past Psychological History: No Psychological Hx Reported Smoking Status: Current every day smoker Past Alcohol Use History: None Reported Past Drug Use History: Marijuana General Exam Limitations: no limitations General appearance: alert, in no apparent distress Head exam: Present: atraumatic, normocephalic, normal inspection Eye exam: Present: normal appearance, PERRL, EOMI. Absent: scleral icterus, conjunctival injection, periorbital swelling ENT exam: Present: normal exam, mucous membranes moist Neck exam: Present: normal inspection, full ROM. Absent: tenderness, meningismu s, lymphadenopathy Respiratory exam: Present: normal lung sounds bilaterally. Absent: respiratory distress, wheezes, rales, rhonchi, stridor Cardiovascular Exam: Present: regular rate, normal rhythm, normal heart sounds. Absent: systolic murmur, diastolic murmur, rubs, gallop, clicks Extremities exam: Present: other (Minimal weakness in the left and, remaining extremity strength equal.) Neurological exam: Present: alert, oriented X3, CN II-XII intact, reflexes normal. Absent: motor sensory deficit Course Vital Signs 06/30/22 08:29 Temperature 98.0 F Pulse Rate 83 Respiratory 18 Rate Blood Pressure 118/81 O2 Sat by Pulse 96 Oximetry Medical Decision Making - Medical Decision Making 32-year-old presented for steroid infusion for MS exacerbation. 1 g was given. He was offered admission he states he's been set up for outpatient infusions she does not want stay in the hospital. Doesn't extend wrist. Patient return for any worsening change in symptoms. Disposition Clinical Impression: Multiple sclerosis exacerbation Disposition: HOME SELF-CARE Condition: Stable Instructions (If sedation given, give patient instructions): Multiple Sclerosis (DC) Additional Instructions: Please return to the Emergency Department if symptoms worsen or any other concerns. Is patient prescribed a controlled substance at d/c from ED?: No Referrals: Benjamín Mortensen MD [Primary Care Provider] - 1-2 days Time of Disposition: 09:42
[2022-06-30] MEDS ORDERED: methylPREDNISolone SOD SUCCIN 1,000 MG in SODIUM CHLORIDE 0.9% 250 ML IVPB STA (08:44)
[2022-06-30 10:09] VITALS: BP 112/78; PULSE 78; TEMP 98.1
== END 2022-06-30 10:08 | disposition home or self-care (01) ==
LOC: EC 08:24
DX: G35 Multiple sclerosis (principal); F17.200 Nicotine dependence, unspecified, uncomplicated; F12.90 Cannabis use, unspecified, uncomplicated
CPT/HCPCS: 99284; 96365; J2930

== ENCOUNTER 2022-07-01 08:44 | Emergency (ER) | payer MEDICARE, OTHER ==
[2022-07-01 09:10] VITALS: RESP 18; TEMP 98.7
[2022-07-01] MEDS ORDERED: methylPREDNISolone SOD SUCCIN 1,000 MG in SODIUM CHLORIDE 0.9% 250 ML IVPB STA (09:43)
--- NOTE | 2022-07-01 10:43 | ED ---
General Adult HPI - General Chief complaint: Recheck/Abnormal Lab/Rx Stated complaint: infusion Time Seen by Provider: 07/01/22 08:51 Source: patient, RN notes reviewed Mode of arrival: ambulatory Limitations: no limitations - History of Present Illness Initial comments: This a 32-year-old male presents emergency Department for steroid infusion. Patient was here yesterday for MS exacerbation sent in by PCP. Patient is here for her second dose of steroids. Patient states that his symptoms are improving so has mild left arm weakness felt there was difficulty ambulate but much better this morning. Patient denies any headache no facial asymmetry. Patient states that he believes that he has been set up for his other infusions. Patient offers no other associated complaints. - Related Data Home Medications Medication Instructions Recorded Confirmed predniSONE See Taper PO DIRECTED 12/26/21 Allergies Allergy/AdvReac Type Severity Reaction Status Date / Time No Known Allergies Allergy Verified 07/01/22 09:10 Review of Systems ROS Statement: Those systems with pertinent positive or pertinent negative responses have been documented in the HPI. ROS Other: All systems not noted in ROS Statement are negative. Past Medical History Past Medical History: Musculoskeletal Disorder Additional Past Medical History / Comment(s): Multiple sclerosis History of Any Multi-Drug Resistant Organisms: None Reported, MRSA Date of last positivie culture/infection: 2006 MDRO Source:: buttock Past Surgical History: No Surgical Hx Reported Past Psychological History: No Psychological Hx Reported Smoking Status: Current every day smoker Past Alcohol Use History: None Reported Past Drug Use History: Marijuana General Exam Limitations: no limitations General appearance: alert, in no apparent distress Head exam: Present: atraumatic, normocephalic, normal inspection Eye exam: Present: normal appearance, PERRL, EOMI. Absent: scleral icterus, conjunctival injection, periorbital swelling ENT exam: Present: normal exam, normal oropharynx, mucous membranes moist Neck exam: Present: normal inspection, full ROM. Absent: tenderness, meningismus, lymphadenopathy Respiratory exam: Present: normal lung sounds bilaterally. Absent: respiratory distress, wheezes, rales, rhonchi, stridor Cardiovascular Exam: Present: regular rate, normal rhythm, normal heart sounds. Absent: systolic murmur, diastolic murmur, rubs, gallop, clicks Extremities exam: Present: other (Mild left arm weakness) Neurological exam: Present: alert Skin exam: Present: warm, dry, intact, normal color. Absent: rash Course Vital Signs 07/01/22 09:08 Temperature 98.7 F Pulse Rate 96 Respiratory 18 Rate Blood Pressure 123/77 O2 Sat by Pulse 96 Oximetry Medical Decision Making - Medical Decision Making 32-year-old male presented for steroid infusion. Patient did receive steroids infusion he states he is supposed to be getting his other conditions outpatient. Patient states his symptoms are improving after his initial dose. Patient discharged in stable condition return parameters were discussed. Disposition Clinical Impression: Multiple sclerosis exacerbation Disposition: HOME SELF-CARE Condition: Stable Instructions (If sedation given, give patient instructions): Multiple Sclerosis (DC) Additional Instructions: Please return to the Emergency Department if symptoms worsen or any other concer ns. Is patient prescribed a controlled substance at d/c from ED?: No Referrals: Benjamín Mortensen MD [Primary Care Provider] - 1-2 days Time of Disposition: 10:43
[2022-07-01 11:41] VITALS: BP 124/78; PULSE 95
== END 2022-07-01 11:43 | disposition home or self-care (01) ==
LOC: EC 08:44
DX: G35 Multiple sclerosis (principal); F17.200 Nicotine dependence, unspecified, uncomplicated
CPT/HCPCS: 99284; 96365; J2930

== ENCOUNTER 2022-07-02 08:58 | Emergency (ER) | payer MEDICARE, OTHER ==
[2022-07-02] MEDS ORDERED: methylPREDNISolone SOD SUCCIN 1,000 MG in SODIUM CHLORIDE 0.9% 250 ML IVPB STA (09:24)
--- NOTE | 2022-07-02 09:36 | ED ---
General Adult HPI - General Chief complaint: Recheck/Abnormal Lab/Rx Stated complaint: infusion Time Seen by Provider: 07/02/22 09:00 Source: patient, RN notes reviewed Mode of arrival: ambulatory Limitations: no limitations - History of Present Illness Initial comments: 32-year-old male presents emergency Department for steroid infusion for MS exacerbation. Patient has had infusions last 2 days. Patient has been trying to work with his PCP for outpatient infusions unsuccessful at this point. Patient states greatly improving each morning with no new symptoms no increasing symptoms. Patient denies any chest factors breath no current headache - Related Data Home Medications Medication Instructions Recorded Confirmed predniSONE See Taper PO DIRECTED 12/26/21 Allergies Allergy/AdvReac Type Severity Reaction Status Date / Time No Known Allergies Allergy Verified 07/02/22 09:11 Review of Systems ROS Statement: Those systems with pertinent positive or pertinent negative responses have been documented in the HPI. ROS Other: All systems not noted in ROS Statement are negative. Past Medical History Past Medical History: Musculoskeletal Disorder Additional Past Medical History / Comment(s): Multiple sclerosis History of Any Multi-Drug Resistant Organisms: None Reported, MRSA Date of last positivie culture/infection: 2006 MDRO Source:: buttock Past Surgical History: No Surgical Hx Reported Past Psychological History: No Psychological Hx Reported Smoking Status: Current every day smoker Past Alcohol Use History: None Reported Past Drug Use History: Marijuana General Exam Limitations: no limitations General appearance: alert, in no apparent distress Head exam: Present: atraumatic, normocephalic, normal inspection Eye exam: Present: normal appearance, PERRL, EOMI. Absent: scleral icterus, conjunctival injection, periorbital swelling ENT exam: Present: normal exam, mucous membranes moist Neck exam: Present: normal inspection, full ROM. Absent: tenderness, meningismus, lymphadenopathy Respiratory exam: Present: normal lung sounds bilaterally. Absent: respiratory distress, wheezes, rales, rhonchi, stridor Cardiovascular Exam: Present: normal rhythm, tachycardia, normal heart sounds. Absent: systolic murmur, diastolic murmur, rubs, gallop, clicks GI/Abdominal exam: Present: soft, normal bowel sounds. Absent: distended, tenderness, guarding, rebound, rigid Extremities exam: Present: other (left arm weakness minimal, lower extremity strength equal, improved.) Neurological exam: Present: reflexes normal. Absent: motor sensory deficit Course Vital Signs 07/02/22 09:09 Temperature 98 F Pulse Rate 125 H Respiratory 20 Rate Blood Pressure 134/70 O2 Sat by Pulse 99 Oximetry Medical Decision Making - Medical Decision Making 32-year-old presented for steroid infusion. Patient did receive his third steroid infusion. Patient discharged in stable condition he'll continue to follow-up with PCP for further recommendations. Disposition Clinical Impression: Multiple sclerosis exacerbation Disposition: HOME SELF-CARE Condition: Stable Instructions (If sedation given, give patient instructions): Multiple Sclerosis (DC) Additional Instructions: Please return to the Emergency Department if symptoms worsen or any other concerns. Is patient prescribed a controlled substance at d/c from ED?: No Referrals: Benjamín Mortensen MD [Primary Care Provider] - 1-2 days Time of Disposition: 09:35
[2022-07-02 09:42] VITALS: PULSE 91; RESP 18
[2022-07-02 11:04] VITALS: BP 128/68; TEMP 98.6
== END 2022-07-02 11:03 | disposition home or self-care (01) ==
LOC: EC 08:58
DX: G35 Multiple sclerosis (principal); F17.200 Nicotine dependence, unspecified, uncomplicated
CPT/HCPCS: 99283; 96365; J2930

== ENCOUNTER 2022-08-20 16:13 | Emergency (ER) | payer MEDICARE, OTHER ==
[2022-08-20 19:08] VITALS: RESP 17
[2022-08-20] MEDS ORDERED: methylPREDNISolone SOD SUCCIN 1,000 MG in SODIUM CHLORIDE 0.9% 250 ML IVPB STA (19:26)
--- NOTE | 2022-08-20 19:28 | ED ---
Neuro HPI - General Chief Complaint: Neuro Symptoms/Deficit Stated Complaint: steroid infusion Time Seen by Provider: 08/20/22 19:04 Source: patient, family, RN notes reviewed Mode of arrival: wheelchair Limitations: no limitations - History of Present Illness Is the patient presenting with stroke symptoms?: No Initial Comments: Patient is a 32-year-old male presenting to the emergency room with an acute exacerbation of multiple sclerosis. He reports for approximately 3 days he has had significant increase in left-sided weakness with worsening of his poor baseline gait and difficulty seeing out of his left eye. He states that he is no longer following with a neurologist as he was dismissed from his previous neur ologist office Dr. Espinoza. He states that he has been referred to Dr. Lazo's office for evaluation and treatment of this multiple sclerosis however he has not been evaluated by their office yet either. He reports that he has had approximately 15 infusions over the last few years since being off of his maintenance medication of Copaxone. He states that in the past he has responded well to IV infusions of methylprednisolone to treat acute flares. He has no other significant past medical history. - Related Data Home Medications: Home Medications Medication Instructions Recorded Confirmed Cholecalciferol [Vitamin D3 (25 50 mcg PO DAILY 08/20/22 08/20/22 Mcg = 1000 Iu)] Allergies/Adverse Reactions: Allergies Allergy/AdvReac Type Severity Reaction Status Date / Time No Known Allergies Allergy Verified 08/20/22 20:09 Review of Systems ROS Statement: Those systems with pertinent positive or pertinent negative responses have been documented in the HPI. ROS Other: All systems not noted in ROS Statement are negative. General Exam General appearance: alert, in no apparent distress Head exam: Present: atraumatic, normocephalic, normal inspection Eye exam: Present: normal appearance, PERRL, EOMI. Absent: scleral icterus, conjunctival injection, nystagmus ENT exam: Present: normal exam, mucous membranes moist Neck exam: Present: normal inspection, full ROM Respiratory exam: Absent: respiratory distress, accessory muscle use Cardiovascular Exam: Present: regular rate GI/Abdominal exam: Absent: distended Extremities exam: Present: normal inspection. Absent: pedal edema, joint swelling Back exam: Present: normal inspection Neurological exam: Present: alert, oriented X3, CN II-XII intact, abnormal gait, other (Slight left-sided weakness.) Expanded Speech: Present: fluid speech Cerebellar function: Heel to [place]: Abnormal Right, Abnormal Left (Unable to perform) [place] Total: 15 Psychiatric exam: Present: normal affect, normal mood Skin exam: Present: warm, dry, intact, normal color. Absent: rash Stroke MDM - Lab Data Result diagrams: 08/20/22 20:25 08/20/22 20:25 Lab Results 08/20/22 08/20/22 Range/Units 20:25 20:25 WBC 8.4 (3.8-10.6) k/uL RBC 5.10 (4.30-5.90) m/uL Hgb 15.2 (13.0-17.5) gm/dL Hct 43.9 (39.0-53.0) % MCV 86.2 (80.0-100.0) fL MCH 29.8 (25.0-35.0) pg MCHC 34.6 (31.0-37.0) g/dL RDW 13.7 (11.5-15.5) % Plt Count 250 (150-450) k/uL MPV 8.0 Neutrophils % 68 % Lymphocytes % 23 % Monocytes % 6 % Eosinophils % 2 % Basophils % 1 % Neutrophils # 5.7 (1.3-7.7) k/uL Lymphocytes # 1.9 (1.0-4.8) k/uL Monocytes # 0.5 (0-1.0) k/uL Eosinophils # 0.2 (0-0.7) k/uL Basophils # 0.1 (0-0.2) k/uL ESR 8 (0-15) mm/hr Sodium 141 (137-145) mmol/L Potassium 3.9 (3.5-5.1) mmol/L Chloride 101 (98-107) mmol/L Carbon Dioxide 26 (22-30) mmol/L Anion Gap 14 mmol/L BUN 11 (9-20) mg/dL Creatinine 0.68 (0.66-1.25) mg/dL Est GFR (CKD-EPI)AfAm >90 (>60 ml/min/1.73 sqM) Est GFR (CKD-EPI)NonAf >90 (>60 ml/min/1.73 sqM) Glucose 106 H (74-99) mg/dL Calcium 9.8 (8.4-10.2) mg/dL Total Bilirubin 0.4 (0.2-1.3) mg/dL AST 27 (17-59) U/L ALT 36 (4-49) U/L Alkaline Phosphatase 79 (38-126) U/L C-Reactive Protein <0.5 (<1.0) mg/dL Total Protein 7.7 (6.3-8.2) g/dL Albumin 5.2 H (3.5-5.0) g/dL - Medical Decision Making 32-year-old male presenting to the emergency room with exacerbation of multiple sclerosis. Significant abnormal gait and weakness. Previously responded well to methylprednisolone infusions without side effects. Will give met hylprednisolone infusion. No indication for diagnostic imaging. Will obtain a CBC, CMP sed rate and CRP level. Advised given exacerbation and lack of outpatient neurology follow-up recommendation is for admission for completion of steroid series and monitoring of improvement of relapse remittent symptoms as he is at high risk for progression given his lack of maintenance medications, neurologist and multiple flares over the past several years. Lab stable. Tolerated infusion of methylprednisolone well without side effects. Once again long discussion with patient regarding need for hospitalization and closer monitoring with serial methylprednisolone infusions for multiple sclerosis flare along with neurology evaluation. Patient declines admission and is leaving AGAINST MEDICAL ADVICE. Case discussed with Dr. Bess Past Medical History Past Medical History: Musculoskeletal Disorder Additional Past Medical History / Comment(s): Multiple sclerosis History of Any Multi-Drug Resistant Organisms: None Reported, MRSA Date of last positivie culture/infection: 2006 MDRO Source:: buttock Past Surgical History: No Surgical Hx Reported Past Psychological History: No Psychological Hx Reported Smoking Status: Current every day smoker Past Alcohol Use History: None Reported Past Drug Use History: Marijuana Course Vital Signs 08/20/22 08/20/22 16:33 19:07 Temperature 98.2 F Pulse Rate 86 92 Respiratory 16 17 Rate Blood Pressure 120/79 116/76 O2 Sat by Pulse 100 98 Oximetry Disposition Clinical Impression: Multiple sclerosis exacerbation Disposition: Left Against Medical Advice Is patient prescribed a controlled substance at d/c from ED?: No Referrals: Benjamín Mortensen MD [Primary Care Provider] - 1-2 days Time of Disposition: 21:41
[2022-08-20 20:35] LABS: Basophils # (A) 0.1 k/uL (0-0.2); Basophils % (A) 1 %; Eosinophils # (A) 0.2 k/uL (0-0.7); Eosinophils % (A) 2 %; HCT 43.9 % (39.0-53.0); HGB 15.2 gm/dL (13.0-17.5); Lymphocytes # (A) 1.9 k/uL (1.0-4.8); Lymphocytes % (A) 23 %; MCH 29.8 pg (25.0-35.0); MCHC 34.6 g/dL (31.0-37.0); MCV 86.2 fL (80.0-100.0); Monocytes # (A) 0.5 k/uL (0-1.0); Monocytes % (A) 6 %; Neutrophils # (A) 5.7 k/uL (1.3-7.7); Neutrophils % (A) 68 %; Platelet Count 250 k/uL (150-450); RDW 13.7 % (11.5-15.5); WBC 8.4 k/uL (3.8-10.6)
[2022-08-20 20:51] LABS: ALT 36 U/L (4-49); AST 27 U/L (17-59); African American GFR (CKD) >90 (>60 ml/min/1.73 sqM); Albumin 5.2 g/dL (3.5-5.0); Alkaline Phosphatase 79 U/L (38-126); Anion Gap 14 mmol/L; Blood Urea Nitrogen 11 mg/dL (9-20); Calcium 9.8 mg/dL (8.4-10.2); Carbon Dioxide 26 mmol/L (22-30); Chloride 101 mmol/L (98-107); Glucose 106 mg/dL (74-99); Non-African American GFR(CKD) >90 (>60 ml/min/1.73 sqM); Potassium 3.9 mmol/L (3.5-5.1); Sodium 141 mmol/L (137-145); Total Bilirubin 0.4 mg/dL (0.2-1.3); Total Protein 7.7 g/dL (6.3-8.2)
[2022-08-20 20:53] LABS: C Reactive Protein <0.5 mg/dL (<1.0)
[2022-08-20 21:17] LABS: Erythrocyte Sedimentation Rate 8 mm/hr (0-15)
[2022-08-20 21:45] VITALS: BP 135/74; PULSE 74; TEMP 98.3
== END 2022-08-20 20:40 | disposition left against medical advice (07) ==
LOC: EC 16:13
DX: G35 Multiple sclerosis (principal); F17.200 Nicotine dependence, unspecified, uncomplicated; F12.90 Cannabis use, unspecified, uncomplicated
CPT/HCPCS: 36415; 80053; 85652; 85025; 86140; 99284; 96365; J2930

== ENCOUNTER 2022-08-21 21:29 | Emergency (ER) | payer MEDICARE, OTHER ==
[2022-08-21 21:34] VITALS: BP 144/93; PULSE 120; RESP 20; TEMP 98
[2022-08-21] MEDS ORDERED: methylPREDNISolone SOD SUCCIN 1,000 MG in SODIUM CHLORIDE 0.9% 250 ML IVPB STA (22:11)
--- NOTE | 2022-08-21 22:34 | ED ---
General Adult HPI - General Chief complaint: Neuro Symptoms/Deficit Stated complaint: Infusion Time Seen by Provider: 08/21/22 21:56 Source: patient, RN notes reviewed, old records reviewed Mode of arrival: wheelchair Limitations: no limitations - History of Present Illness Initial comments: Patient is a 32-year-old male with past medical history remarkable for MS with typical flares consisting of difficulty walking, occasionally involving left upper extremity, as well as left eye. Was seen yesterday with similar complaints. States he normally just as outpatient infusions and comes to the emergency department once a day for these. Received infusion yesterday and left AGAINST MEDICAL ADVICE as emergency department for shows believe she should've stayed to be evaluated by neurology as the patient has not seen a neurologist for quite some time. He is due to follow-up with Dr. Galicia on September 10. He sees multiple high-dose steroid infusions per year. Patient's symptoms are largely the same from yesterday. States typically he does not see improvement until day 2. He is currently on day 4 at this time, with continued symptoms from yesterday including difficulty with left eye blurry vision, bilateral lower extremity weakness. Is seeking a second dose of IV steroids and states he would like to still go home. He denies any other acute complaints at this time. - Related Data Home Medications Medication Instructions Recorded Confirmed Cholecalciferol [Vitamin D3 (25 50 mcg PO DAILY 08/20/22 08/20/22 Mcg = 1000 Iu)] Allergies Allergy/AdvReac Type Severity Reaction Status Date / Time No Known Allergies Allergy Verified 08/21/22 21:34 Review of Systems ROS Statement: Those systems with pertinent positive or pertinent negative responses have been documented in the HPI. Review of Systems: CONST: Denies fever EYES: Endorses left eye blurry vision ENT: Denies nasal congestion C/V: Denies Chest pain RESP: Denies shortness of breath GI: Denies abdominal pain : Denies dysuria SKIN: Denies rash. MSK: Denies joint pain. NEURO: Endorses left-sided weakness ROS Other: All systems not noted in ROS Statement are negative. Past Medical History Past Medical History: Musculoskeletal Disorder Additional Past Medical History / Comment(s): Multiple sclerosis History of Any Multi-Drug Resistant Organisms: None Reported, MRSA Date of last positivie culture/infection: 2006 MDRO Source:: buttock Past Surgical History: No Surgical Hx Reported Past Psychological History: No Psychological Hx Reported Smoking Status: Current every day smoker Past Alcohol Use History: None Reported Past Drug Use History: Marijuana General Exam - General Exam Comments Initial Comments: General: Appears in no acute distress. HEAD: Normal with no signs of head trauma. EYES: PERRLA, EOMI, conjunctiva normal, no discharge. Pupils 3 mm and equal bilaterally. ENT: Hearing grossly intact, normal oropharynx. RESPIRATORY: Clear breath sounds bilaterally. No wheezes, rales, or rhonchi. C/V: Regular rate and rhythm. S1 and S2 auscultated, no edema, peripheral pulses 2+ and intact throughout ABD: Abd is soft, nontender, nondistended EXT: Normal range of motion, no obvious deformity SKIN: No rashes or lesions observed on exposed skin. NEURO: Alert and oriented 4. Cranial nerves II through XII are intact. Mild blurry vision out of the left eye. Acuity seems to be intact. Mild left upper extremity weakness, mild bilateral lower extremity weakness. Per patient, similar symptoms as yesterday. Typical for MS flares for him. Limitations: no limitations Course Vital Signs 08/21/22 21:30 Temperature 98 F Pulse Rate 120 H Respiratory 20 Rate Blood Pressure 144/93 O2 Sat by Pulse 98 Oximetry Medical Decision Making - Medical Decision Making Based on the patient's presentation and physical exam, he presents for high-dose steroid infusion day 2 for an MS flare. He is having his typical MS flare symptoms. Left AGAINST MEDICAL ADVICE and refused admission yesterday. States he would still like to go home today. Is seeking his high-dose steroids. Does have outpatient neurology follow-up but that is not for 2-3 weeks. He is no longer on his maintenance therapy which is seen an increase in his MS flares over the last 5 years. Has not followed up with neurology over this period of time either. No seeming needs to see his neurologist so that he can be restarted on maintenance therapy to reduce the number of players. States he would likely leave again today. Vital signs are within acceptable limits. We will treat him with high-dose IV steroids. I do not believe that further workup is required at this time. He was in agreement this plan. Laboratory studies ob tained yesterday were unremarkable. Patient received his 1 g of Solu-Medrol infusion. His visual complaints of the left eye had completely resolved. He is able to move both lower extremities without issue. Is ambulating. But like to go home. I do believe this is reasonable as his symptoms resolved with the steroids. This is typical for his MS flare. He will return tomorrow for an additional infusion. I did offer him admission but he refuses. His symptoms have resolved, I do believe this is reasonable as this is typical for his symptoms. I instructed the patient to follow up with their PCP in the next 1-3 days. I explained that the patient should return to the emergency department if they experience any worsening symptoms. Strict return precautions were discussed with the patient. The patient expressed understanding of these instructions. I answered all questions that the patient had. The patient was discharged home in good condition with their prescriptions and follow up information. Disposition Clinical Impression: Multiple sclerosis Disposition: HOME SELF-CARE Condition: Fair Is patient prescribed a controlled substance at d/c from ED?: No Referrals: Benjamín Mortensen MD [Primary Care Provider] - 1-2 days Time of Disposition: 00:01
== END 2022-08-22 00:35 | disposition home or self-care (01) ==
LOC: EC 21:29
DX: G35 Multiple sclerosis (principal); F17.200 Nicotine dependence, unspecified, uncomplicated; F12.90 Cannabis use, unspecified, uncomplicated
CPT/HCPCS: 99283; 96360; J2930

== ENCOUNTER 2022-08-22 23:23 | Emergency (ER) | payer MEDICARE, OTHER ==
[2022-08-23 01:21] VITALS: RESP 16
[2022-08-23] MEDS ORDERED: methylPREDNISolone SOD SUCCIN 1,000 MG in SODIUM CHLORIDE 0.9% 250 ML IVPB STA (01:44)
--- NOTE | 2022-08-23 03:33 | ED ---
General Adult HPI - General Chief complaint: Recheck/Abnormal Lab/Rx Stated complaint: steroid infusion Time Seen by Provider: 08/23/22 01:18 Source: patient, RN notes reviewed, old records reviewed Mode of arrival: wheelchair Limitations: no limitations - History of Present Illness Initial comments: Patient is a 32-year-old male who presents emergency Department for steroid infusion for MS flare. Today will be 3 days out of 3 days for steroid infusion. Is seen here frequently in the emergency department for similar complaints. I did evaluate the patient yesterday. Was having a typical MS flare at the time. His MS flares typically involve left upper and left lower extremity weakness as well as occasional right lower extremity weakness. Also involves left visual deficits. All the symptoms today are improved versus yesterday. He is able to ambulate. States this is typical for his steroid infusions for MS flares abdomen states after the third infusion he is back to his normal baseline. Is still due to follow-up with a neurologist early next month. Has declined admission to be evaluated by our neurology team. He is improving on steroid treatment. Is seeking additional steroid treatment at this time. No new symptoms or complaints. - Related Data Home Medications Medication Instructions Recorded Confirmed Cholecalciferol [Vitamin D3 (25 50 mcg PO DAILY 08/20/22 08/20/22 Mcg = 1000 Iu)] Allergies Allergy/AdvReac Type Severity Reaction Status Date / Time No Known Allergies Allergy Verified 08/22/22 23:40 Review of Systems ROS Statement: Those systems with pertinent positive or pertinent negative responses have been documented in the HPI. Review of Systems: CONST: Denies fever EYES: Denies blurry vision ENT: Denies nasal congestion C/V: Denies Chest pain RESP: Denies shortness of breath GI: Denies abdominal pain : Denies dysuria SKIN: Denies rash. MSK: Denies joint pain. NEURO: Denies headache ROS Other: All systems not noted in ROS Statement are negative. Past Medical History Past Medical History: Musculoskeletal Disorder Additional Past Medical History / Comment(s): Multiple sclerosis History of Any Multi-Drug Resistant Organisms: None Reported, MRSA Date of last positivie culture/infection: 2006 MDRO Source:: buttock Past Surgical History: No Surgical Hx Reported Past Psychological History: No Psychological Hx Reported Smoking Status: Former smoker Past Alcohol Use History: None Reported Past Drug Use History: Marijuana General Exam - General Exam Comments Initial Comments: General: Appears in no acute distress. HEAD: Normal with no signs of head trauma. EYES: PERRLA, EOMI, conjunctiva normal, no discharge. Normal visual acuity. Pupils are 3 mm and equal bilaterally. ENT: Hearing grossly intact, normal oropharynx. RESPIRATORY: Clear breath sounds bilaterally. No wheezes, rales, or rhonchi. C/V: Regular rate and rhythm. S1 and S2 auscultated, peripheral pulses 2+ and intact throughout ABD: Abd is soft, nontender, nondistended EXT: Normal range of motion, no obvious deformity SKIN: No rashes or lesions observed on exposed skin. NEURO: Alert and oriented 4. Cranial nerves II through XII are intact. Improved weakness in the left upper and left lower extremities as well as the right lower extremity. Able to ambulate. Limitations: no limitations Course Vital Signs 08/22/22 08/23/22 08/23/22 23:38 01:19 02:06 Temperature 97.9 F 98 F 98.4 F Pulse Rate 85 64 70 Respiratory 18 16 16 Rate Blood Pressure 117/77 119/65 124/77 O2 Sat by Pulse 96 97 99 Oximetry 08/23/22 08/23/22 03:00 03:35 Temperature 98.1 F 98.4 F Pulse Rate 80 74 Respiratory 16 16 Rate Blood Pressure 110/55 109/52 O2 Sat by Pulse 99 99 Oximetry Medical Decision Making - Medical Decision Making Based on the patient's presentation and Physical exam, he presents seeking steroid infusion for an MS flare. I did see him yesterday and his symptoms are improved. Today will be the third treatment. His no new symptoms. Vital signs are within acceptable limits. We'll provide him with a 1 g of Solu-Medrol IV pi ggyback. He'll be subsequently reevaluated. He was in agreement this plan. Following therapy, patient's symptoms are improved. He would like to go home. I once again offered him admission to be evaluated by her inpatient neurology team but he refuses. Will return if needed. I believe this is reasonable as the symptoms are improving which is typical for his MS flares following high- dose steroid therapy. We discuss the need to follow up with his outpatient neurology appointment again, as he likely requires maintenance medications. Expressed understanding was in agreement this plan. I instructed the patient to follow up with their PCP in the next 1-3 days. I explained that the patient should return to the emergency department if they experience any worsening symptoms. Strict return precautions were discussed with the patient. The patient expressed understanding of these instructions. I answered all questions that the patient had. The patient was discharged home in good condition with their prescriptions and follow up information. Disposition Clinical Impression: Multiple sclerosis exacerbation Disposition: HOME SELF-CARE Condition: Good Is patient prescribed a controlled substance at d/c from ED?: No Referrals: Benjamín Mortensen MD [Primary Care Provider] - 1-2 days Time of Disposition: 03:15
[2022-08-23 03:37] VITALS: BP 109/52; PULSE 74; TEMP 98.4
== END 2022-08-23 03:37 | disposition home or self-care (01) ==
LOC: EC 23:23
DX: G35 Multiple sclerosis (principal); Z87.891 Personal history of nicotine dependence
CPT/HCPCS: 99283; 96365; J2930

== ENCOUNTER → 2022-10-15 | Outpatient (CLI) | payer MEDICARE, OTHER ==
[2022-10-16 01:00] LABS: Basophils # (A) 0.01 X 10*3/uL (0.00-0.10); Basophils % (A) 0.1 %; Eosinophils # (A) 0 X 10*3/uL (0.04-0.35); Eosinophils % (A) 0 %; HCT 40.2 % (39.6-50.0); HGB 13.8 g/dL (13.0-17.0); Immature Grans, Automated 0.6 %; Lymphocytes # (A) 0.72 X 10*3/uL (0.90-5.00); Lymphocytes % (A) 4.3 %; MCH 29.7 pg (27.0-32.0); MCHC 34.3 g/dL (32.0-37.0); MCV 86.6 fL (80.0-97.0); Mean Platelet Volume 10.1 fL (9.5-12.2); Monocytes # (A) 1.03 X 10*3/uL (0.20-1.00); Monocytes % (A) 6.2 %; NRBC Per 100 WBC 0 /100 WBCS (0.0-0.0); Neutrophils # (A) 14.82 X 10*3/uL (1.80-7.70); Neutrophils % (A) 88.8 %; Platelet Count 266 X 10*3/uL (140-440); RBC 4.64 X 10*6/uL (4.40-5.60); RDW 13.6 % (11.5-14.5); WBC 16.68 X 10*3/uL (4.50-10.00)
[2022-10-16 01:53] LABS: Hepatitis A Antibody IgM Nonreactive (Nonreactive); Hepatitis B Core IgM Nonreactive (Nonreactive); Hepatitis B Surface Antigen Nonreactive (Nonreactive); Hepatitis C IgG Antibody Nonreactive (Nonreactive)
[2022-10-16 01:57] LABS: African American GFR (CKD) 146.7 (60.0-200.0); Albumin 4.8 g/dL (3.8-4.9); Albumin/Globulin Ratio 2.39 (1.60-3.17); Anion Gap 13.8 mmol/L (10.00-18.00); BUN/Creat Ratio 23.34 Ratio (12.00-20.00); Blood Urea Nitrogen 15.8 mg/dL (9.0-27.0); Calcium 9.7 mg/dL (8.7-10.3); Carbon Dioxide 20.6 mmol/L (20.0-27.5); Non-African American GFR(CKD) 126.6 (60.0-200.0); Potassium 3.8 mmol/L (3.5-5.5); Total Bilirubin 0.4 mg/dL (0.30-1.20); Total Protein 6.7 g/dL (6.2-8.2)
[2022-10-16 10:50] LABS: V. zoster Source Blood - EDTA
== END | disposition home or self-care (01) ==
LOC: LABWHC1 16:10
PROVIDERS: ATTEND Nurse Practitioner Acute Care
DX: G35 Multiple sclerosis (principal); E55.9 Vitamin D deficiency, unspecified; E53.9 Vitamin B deficiency, unspecified
CPT/HCPCS: 36415; 80053; 80074; 82306; 82607; 84207; 85025; 87798

== ENCOUNTER → 2023-07-01 | Outpatient (CLI) | payer MEDICARE, OTHER ==
--- NOTE | 2023-07-01 15:39 | US ---
EXAMINATION TYPE: US kidneys/renal and bladder DATE OF EXAM: 07/01/2023 COMPARISON: NONE CLINICAL INDICATION: Male, 33 years old with history of R33.9 RETENTION OF URINE, UNSPECIFIED; EXAM MEASUREMENTS: Right Kidney: 10.4 x 4.2 x 5.2 cm Left Kidney: 11.2 x 5.7 x 5.6 cm Post Void Residual Volume: 130 mL Right Kidney: wnl Left Kidney: wnl Bladder: No gross abnormal mobility. Bilateral Jets seen: no Normal Post Void Residual: 130 mL. Abnormal post void residual, pt is unable to empty his bladder. IMPRESSION: Post void bladder volume of 130 mL. Correlate for urinary retention. No hydronephrosis.
== END | disposition home or self-care (01) ==
LOC: RADUSWWP 12:33
PROVIDERS: ATTEND Internal Medicine
DX: R33.9 Retention of urine, unspecified (principal)
CPT/HCPCS: 76770